=== PATIENT | female | born 1980 | race Caucasian/White ===

== ENCOUNTER 2022-10-03 08:13 | Outpatient (NON) | payer OTHER, SELFPAY | END 2022-10-03 08:14 | disposition home or self-care (01) | PROVIDERS: PCP Family Medicine; Visit Provider Internal Medicine Gastroenterology | DX: R11.2 Nausea with vomiting, unspecified (principal) | CPT/HCPCS: 88305 ==

== ENCOUNTER 2022-10-03 10:29 | Day surgery (SDC) | payer OTHER, SELFPAY ==
[2022-09-11 08:00] VITALS: BMI 22.4
[2022-09-19 13:54] VITALS: BMI 21.7
--- NOTE | 2022-10-03 10:08 | P.PNAN_ITS ---
Anes - Initial Pre Proc Eval Procedure: Operation Date: 10/03/22 12:00 Proposed Procedures p Esophagogastroduodenoscopy - Demarcus Cheatham MD Date/Time: 10/03/22 10:08 Surgeon: Demarcus Cheatham MD Pre Op Diagnosis: Nausea and Vomitting Patient Data Age: 42 Gender: F Height: 1.57 m Weight: 54 kg Allergies Allergy/AdvReac Type Severity Reaction Status Date / Time ciprofloxacin Allergy Intermediate Other Verified 10/03/22 10:49 fluconazole Allergy Unknown Rash Verified 10/03/22 10:49 tramadol Allergy Unknown Nausea and Verified 10/03/22 10:49 Vomiting Home Medications Medication Instructions Recorded Confirmed Type pantoprazole 40 mg tablet,delayed 40 mg PO QAM #30 tabs 07/05/22 10/03/22 Rx release (Protonix) cetirizine 10 mg capsule (Zyrtec) 10 mg PO DAILY PRN Allergy Symptoms 09/06/22 10/03/22 History drospirenone 3 mg-ethinyl 1 tablet PO DAILY 09/06/22 10/03/22 History estradiol 0.02 mg tablet (RADHA (28)) Patient hx anesthesia problems: none Family hx anesthesia problems: none Results Review: All pre-operative results and documents have been reviewed as part of the pre- operative evaluation. [facility] Past Medical History Medical History (Updated 10/03/22 @ 10:09 by Timi Gasca DO) Belching symptom Colon cancer screening Erosive gastritis Gluten intolerance History of gastric ulcer Nausea and vomiting in adult Surgical History Surgical History (Updated 10/03/22 @ 10:09 by Timi Gasca DO) History of bilateral oophorectomy Family History Family History Father Diabetes mellitus Mother Hypertension Social History Social History Smoking status: Never smoker Tobacco type: cigarettes Alcohol intake: current Substance use: never Substance use type: does not use Living arrangements: with family Spiritual care concerns: No Anes - Eval Final PreProcedure Day of Procedure 10/03/22 10:08 Patient weight: normal Heart: regular rate and rhythm Lungs: clear to auscultation and normal air movement Airway: Mallampati scale class II Neurological: alert and oriented Last oral intake: >/= 8 hours ASA classification: II Emergent: no Anesthetic plan: proceed Anesthesia type and monitoring: general GIVS and standard monitoring Results Review: All pre-operative results and documents have been reviewed as part of the pre- operative evaluation. Informed Consent: The patient's anesthetic plan and its attendant risks and benefits were discussed with the patient/family/POA. Questions were solicited and answers provided to the satisfaction of the patient/family/POA.
[2022-10-03 10:45] VITALS: BP 117/74; PULSE 85; RESP 20; TEMP 37.2; O2SAT 100; BMI 22.6
[2022-10-03] MEDS: LACTATED RINGERS 1,000 ML 150 ML IV CONT (10:58)
--- NOTE | 2022-10-03 11:54 | WPDHPUPDATE1 ---
History and Physical Update Update Date/Time: 10/03/22 11:54 History and Physical has been reviewed, including an updated exam of the patient. There are NO changes in the patient's condition. Risks, benefits, and alternatives have been discussed and questions answered. Patient agrees to proceed with procedure.
[2022-10-03 12:08] VITALS: BP 101/74; PULSE 86; RESP 15; O2SAT 99
[2022-10-03 12:18] VITALS: BP 105/75; PULSE 79; RESP 15; O2SAT 100
[2022-10-03 12:28] VITALS: BP 101/75; PULSE 70; RESP 15; O2SAT 100
--- NOTE | 2022-10-03 13:17 | WPDANESPN ---
Anes - Prog Note Post-Op Date/Time: 10/03/22 13:17 Cardiovascular status: normal Respiratory status: normal Airway patency: baseline Mental status: baseline Post-Op hydration status: normal Vital Signs: Last Vital Signs Temp 37.2 C 10/03/22 10:45 Pulse 70 10/03/22 12:28 Resp 15 10/03/22 12:28 BP 101/75 10/03/22 12:28 Pulse Ox 100 10/03/22 12:28 O2 Del Method Room Air 10/03/22 12:28 Pain Score (VAS): 0 Post-procedural complaints: none Patient Feedback: Patient satisfied with anesthetic care. Other Findings: Patient vital signs back to baseline. Patient denies nausea and vomiting. Patient's pain under control. Patient OK for discharge.
== END 2022-10-03 12:43 | disposition home or self-care (01) ==
PROVIDERS: PCP Family Medicine; Visit Provider Internal Medicine Gastroenterology
PROC: 0DJ08ZZ Inspection of Upper Intestinal Tract, Via Natural or Artificial Opening Endoscopic (ICD-10-PCS; CPT 43235; principal; 2022-10-03 12:00)
DX: R11.2 Nausea with vomiting, unspecified (principal)
CPT/HCPCS: 43239

== ENCOUNTER 2025-03-18 00:18 | Day surgery (SDC) | payer OTHER, SELFPAY ==
[2025-03-04 11:57] VITALS: BMI 24.2
--- OUTSIDE RECORDS SUMMARY | 2025-03-18 00:21 | XMS_ITS | Data Portability ---
Author Organization [place] [facility],, Teresa jensen Address [address] [place] [address] Assessment No assessment recorded. Plan of Treatment Reminders Order Date Submit Date Provider Last Modified By Organization Details Last Modified Time Details Appointments None recorded. Lab food allergen panel, serum 2018 019 [facility], [address], [address], [place], [address], 9 10:48:05 Referral None recorded. Procedures None recorded. Surgeries None recorded. Imaging None recorded. Medication Orders None recorded. Patient TargetsNo targets recorded. Patient Instructions Encounter Date Encounter Id Patient Instructions Last Modified By Organization Details Last Modified Time 02/23/2019 [id number] food allergy: care instructions kristina Not available 02/23/2019 15:24:11 Reason for Referral None Reported. Results Created Date Observation Date Name Description Value Unit Range Abnormal Flag Note LastModifiedBy Organization Detail LastModifiedTime 02/24/2002/23/2019 food aller gen panel , serum class description Commen t Level s of Speci fic IgE Class Descr iptio n of Class ----- ----- ----- ----- ----- -- ----- ----- ----- ----- ----- < 0.10 0 Negat juany 0.10 - 0.31 0/I Equiv ocal/ Low 0.32 - 0.55 I Low 0.56 - 1.40 II Moder ate 1.41 - 3.90 III High 3.91 - 19.00 IV Very High 19.01 - 100.0 0 V Very High >100. 00 Very High Not Available [facility] ([facility]) [address] [place], [address], 02/27/2019 06:10:08 02/24/2002/25/2019 food aller gen panel , serum P355-PsZ clam 0.36 kU/L class I abnormal Not Available [facility] ([facility]) [address] [place], [address], 02/27/2019 06:10:08 02/24/2002/25/2019 food aller gen panel , serum O434-YwP codfish <0.10 kU/L class 0 Not Available [facility] ([facility]) [address] [place], [address], 02/27/2019 06:10:08 02/24/2002/25/2019 food aller gen panel , serum E950-OgY corn <0.10 kU/L class 0 Not Available [facility] ([facility]) [address] [place], [address], 02/27/2019 06:10:08 02/24/2002/25/2019 food aller gen panel , serum P160-OyH scallop 0.44 kU/L class I abnormal Not Available [facility] ([facility]) [address] [place], [address], 02/27/2019 06:10:08 02/24/2002/25/2019 food aller gen panel , serum X903-GvX sesame seed <0.10 kU/L class 0 Not Available [facility] ([facility]) [address] [place], [address], 02/27/2019 06:10:08 02/24/2002/25/2019 food aller gen panel , serum D424-BbZ shrimp 0.73 kU/L class II abnormal Not Available [facility] ([facility]) [address] [place], [address], 02/27/2019 06:10:08 02/24/2002/25/2019 food aller gen panel , serum E289-KfQ soybean <0.10 kU/L class 0 Not Available [facility] ([facility]) [address] [place], [address], 02/27/2019 06:10:08 02/24/2002/25/2019 food aller gen panel , serum Z276-EhW wheat 0.14 kU/L class 0/I abnormal Not Available [facility] ([facility]) [address] [place], [address], 02/27/2019 06:10:08 02/24/2002/25/2019 food aller gen panel , serum O305-EnD milk <0.10 kU/L class 0 Not Available [facility] ([facility]) [address] [place], [address], 02/27/2019 06:10:08 02/24/2002/25/2019 food aller gen panel , serum F173-TdL egg white <0.10 kU/L class 0 Not Available [facility] ([facility]) [address] [place], [address], 02/27/2019 06:10:08 02/24/2002/25/2019 food aller gen panel , serum F658-BrQ peanut <0.10 kU/L class 0 Not Available [facility] ([facility]) [address] [place], [address], 02/27/2019 06:10:08 02/24/2002/25/2019 food aller gen panel , serum P602-GrS hazelnut (filbert) 0.40 kU/L class I abnormal Not Available [facility] ([facility]) [address] [place], [address], 02/27/2019 06:10:08 02/24/2002/2502/25/2019 food aller gen panel , serum J925-JxQ walnut <0.10 kU/L class 0 Not Available [facility] ([facility]) [address] [place], [address], 02/27/2019 06:10:08 02/24/2002/25/2019 food aller gen panel , serum L095-LnM cashew nut <0.10 kU/L class 0 Not Available [facility] ([facility]) [address] [place], [address], 02/27/2019 06:10:08 02/24/2002/25/2019 food aller gen panel , serum L187-ByD brazil nut <0.10 kU/L class 0 Not Available [facility] ([facility]) [address] [place], [address], 02/27/2019 06:10:08 02/24/2002/25/2019 food aller gen panel , serum Y418-DqM macadamia nut <0.10 kU/L class 0 Not Available [facility] ([facility]) [address] [place], [address], 02/27/2019 06:10:08 02/24/2002/25/2019 food aller gen panel , serum M231-LdY pecan nut <0.10 kU/L class 0 Not Available [facility] ([facility]) [address] [place], [address], 02/27/2019 06:10:08 02/24/2002/25/2019 food aller gen panel , serum E180-PpG pistachio nut <0.10 kU/L class 0 Not Available [facility] ([facility]) [address] [place], [address], 02/27/2019 06:10:08 02/24/2002/25/2019 food aller gen panel , serum S585-XfT almond <0.10 kU/L class 0 Not Available [facility] ([facility]) [address] [place], [address], 02/27/2019 06:10:08 02/24/2002/26/2019 food aller gen panel , serum I122-IhM cor A 1 0.41 kU/L class I abnormal Not Available [facility] ([facility]) [address] [place], [address], 02/27/2019 06:10:08 02/24/2002/26/2019 food aller gen panel , serum M118-RmN cor A 8 <0.10 kU/L class 0 Not Available [facility] ([facility]) [address] [place], [address], 02/27/2019 06:10:08 02/24/2002/26/2019 food aller gen panel , serum I855-KtW cor A 9 <0.10 kU/L class 0 Not Available [facility] ([facility]) [address] [place] [address], [address], 02/27/2019 06:10:08 02/24/2002/26/2019 food aller gen panel , serum V140-BoH cor A 14 <0.10 kU/L class 0 Not Available [facility] ([facility]) [address] [place] [address], [address], 02/27/2019 06:10:08 Result Notes None recorded. Problems No Known Problems Medical Equipment None Reported. Allergies Allergen ID Allergen Name Allergen Category Reaction Reaction Severity Criticality Documentation Date Start Date Code Code System Note Provider Name and Address Organization Details Recorded Time 83414 Cipro medicatio n other severe Not available 02/23/201913191 3 RxNorm Donya culver [place] [facility], 9 15:14:04 06127 tramadol medicatio n rash moderate Not available 02/23/2019 55564 RxNorm RAND Vargas - [facility], 9 15:14:19 47088 Diflucan medicatio n rash moderate Not available 02/23/201977579 3 RxNorm RAND Vargas - [facility], 9 15:14:36 Medications Name Sig Start Date Stop Date Status Note LastModified by Organization Details LastModified Time prednisone 10 mg tablet 02/23 completed Not Available Not Available Not Available fluconazole 150 mg tablet 02/23 completed Not Available Not Available Not Available tretinoin 0.025 % topical cream active Not Available Not Availa ble Not Available spironolactone 100 mg tablet active Not Available Not Availabl e Not Available pantoprazole 40 mg tablet,delayed release active Not Available Not Available Not Available clindamycin 1 % lotion active Not Available Not Available Not Available Vitals Date Recorded Body height Body mass index (BMI) Body weight Body temperature Systolic And Diastolic Provider Name and Address Organization Details Last Updated DateTime 02/23/2019 160.02 cm 22 kg/m2 07045.4 5 g 98.4 [degF] 120/80 mm[Hg] Melissa GORDILLO - [facility], 9 15:11:38 Social History Question Answer Notes LastModified by Organizat ion Details LastModified Time Tobacco Smoking Status Former Smoker RAND Reed - [facility], 02/23/2019 15:14:46 How Much Tobacco Do You Smoke? 0.5 PPD Information not available 02/23/2019 How Many Years Have You Smoked Tobacco? 10 Information not available 02/23/2019 Sex: Unknown Functional Status None recorded. Mental Status None recorded. Family History Nothing Reported. Medical History Condition Response Diabetes N Anxiety Disorder N Coronary Artery Disease N Gout N Arthritis N Kidney Stones N Hyperthyroidism N Tuberculosis N Cancer N Stroke N Diverticulitis N Stress N Hypothyroidism N COPD N Depression N Allergies N Asthma N High Cholesterol N GERD/Reflux N Liver Disease N Heart Disease N Pulmonary Embolism N Fibromyalgia N Hypertension N Osteoporosis N Kidney Disease N Gynecological HistoryNo gynecological history recorded. Obstetrics History GPAL:G 0 P 0 0 0 0 Past Encounters Encounter ID Performer Location Encounter Start Date Encounter Closed Date Diagnosis/Indication Diagnosis SNOMED-CT Code Diagnosis ICD10 Code Diagnosis IMO Codes Diagnosis Note [id number] Epi rushing MD OFFICE [address] [place] [address],[facility] [address] [place] [phone] 02/23/2019 14:35:37 02/23/2019 16:45:43 Allergy to food 858221088 T78.1XXA Doubt this represents food allergy. Will check a food allergy panel Health Concerns Section Related Observation LastModified by Organization Detai ls LastModified Time None Recorded Concern Status LastModified by Organization Details LastModified Time None Recorded Advance Directives Directive None Recorded Payers Insurance Date Sequence Insurance Name Policy Number Policy Jung Covered Member ID Jung Member ID Guarantor Name 02/23/2019 1 [facility] [id number] Elizabeth Crane [id number] Elizabeth Crane Notes Date Note Type Note Provider Name and Address Organization Details Recorded Time 02/23/2019 text/html 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 She has had 5 years of lots of different GI complaints including ulcers abdominal pain cramping. She has had an upper endoscopy and a colonoscopy. The upper endoscopy which was just in recently showed some inflammation. She recently saw her general medical practitioner who thought this all could be related to food allergies. She denies any oral pruritus. There is no particular food that she identifies with causing problems. She has had a screen for gluten sensitivity. Epi Patterson MD [address], [place], [address], [facility] [place] - [facility], 02/23/2019 16:46:15 OBGyn Episode No OBEpisode recorded.
--- OUTSIDE RECORDS SUMMARY | 2025-03-18 00:21 | XMS_ITS | Encounter Summary ---
Author Organization [facility] Address [address] [place] [address] Phone Care Team Providers Care Damascener Name Role Phone Edwina Navarro APRN, ELECTRICAL PROJECT MANAGER Primary Care Provider + Reason for Visit * Reason Comments Medication Refill Encounter Details Date Type Department Care Team (Late st Contact Info) Description 06/18/2023 Refill [facility] - Family Medicine - [place] [address] [place] [phone] Brenda Stubbs, [address] [place] [address] Medication Refill Social History Tobacco Use Types Packs/Day Years Used Date Smoking Tobacco: Former Cigarettes 0.5 20 1 994 - 2014 Smokeless Tobacco: Never Alcohol Use Standard Drinks/Week Comments Yes 0 (1 standard drink = 0.6 oz pur e alcohol) wine rarely 1-2 drinks Education Answer Date Recorded What is the highest level of school you have completed or the highest degree you have received? Associate degree: occupational, technical, or vocational program 12/04/2022 Comments Unknown Sex and Gender Information Value Date Recorded Sex Assigned at Not on file Legal Sex Female 7:35 PM CDT Gender Identity Not on file Sexual Orientation Not on file documented as of this encounter Miscellaneous Notes * Telephone Encounter - Christi Rodriguez RN - 06/19/2023 7:56 AM CST Medication failed the protocol, provider to review and approve the medication order if appropriate. Requested Prescriptions Pending Prescriptions Disp Refills hydrOXYzine (ATARAX) 50 MG Tablet [Pharmacy Med Name: hydrOXYzine HCl 50 MG Oral Tablet] 15 Tablet 0 Sig: TAKE 1 TABLET BY MOUTH EVERY 6 HOURS NEEDED FOR ANXIETY OR SLEEP Not Delegated - Off Protocol Failed - 06/18/2023 8:19 PM Failed - This refill cannot be delegated Passed - Visit with relevant provider in past 12 months or upcoming 90 days Recent Visits Date Type Provider Dept 04/19/23 Office Visit Edwina Navarro APRN, CNP [facility] 01/11/23 Office Visit Edwina Navarro APRN, CNP [facility] 12/05/22 Office Visit Edwina Navarro APRN, CNP [facility] Showing recent visits within past 365 days and meeting all other requirements Future Appointments No visits were found meeting these conditions. Showing future appointments within next 90 days and meeting all other requirements O VISUAL EQUIPMENT RENTAL CLERK documented in this encounter Plan of Treatment Upcoming Encounters Date Type Department Care Team (Late st Contact Info) Description 03/24/2025 3:30 PM CDT Office Visit [facility] - Family Medicine [facility] [address] [place] [address] Edwina Navarro APRN, ELECTRICAL PROJECT MANAGER [address] [place] [address] documented as of this encounter Visit Diagnoses Diagnosis Anxiety Anxiety state, unspecified documented in this encounter Additional Health Concerns Infection Onset Date Last Indicated Resolved Time Respiratory Rule-Out 08/19/2023 08/19/2023 024 10:54 AM AUDIO VISUAL EQUIPMENT RENTAL CLERK COVID - 19 08/19/2023 08/19/2023 08/19/2023 10:5 4 AM AUDIO VISUAL EQUIPMENT RENTAL CLERK documented as of this encounter Care Teams Damascener Relationship Specialty Start Date End Date Edwina Navarro APRN, [address] [place] [address] PCP - General Advanced Practice Nurse 12/05/22 documented as of this encounter
--- OUTSIDE RECORDS SUMMARY | 2025-03-18 00:21 | XMS_ITS | Encounter Summary ---
Author Organization [facility] Address [address] [place] [address] Phone Care Team Providers Care Rolling Up Machine Operator Name Role Phone Edwina Navarro APRN, COMMUNICATIONS EQUIPMENT INSTALLER Primary Care Provider + Reason for Visit * Reason Comments Medication Refill Encounter Details Date Type Department Care Team (Late st Contact Info) Description 07/14/2023 Refill [facility] - Family Medicine - [place] [address] [place] [phone] Edwina Navarro, RN ENT, COMMUNICATIONS EQUIPMENT INSTALLER [address] [place] [address] Medication Refill Social History Tobacco Use Types [...] Telephone Encounter - Christi Rodriguez RN - 07/15/2023 11:58 AM CST Medication failed the protocol, provider to review and approve the medication order if appropriate. Requested Prescriptions Pending Prescriptions Disp Refills hydrOXYzine (ATARAX) 50 MG Tablet [Pharmacy Med Name: hydrOXYzine HCl 50 MG Oral Tablet] 15 Tablet 0 Sig: TAKE 1 TABLET BY MOUTH EVERY 6 HOURS NEEDED FOR ANXIETY OR SLEEP Not Delegated - Off Protocol Failed - 07/14/2023 8:10 PM Failed - This refill cannot be delegated Passed - Visit with relevant provider in past 12 months or upcoming 90 days Recent Visits Date Type Provider Dept 04/19/23 Office Visit Edwina Navarro APRN, CNP [facility] 01/11/23 Office Visit Edwina Navarro APRN, CNP [facility] 12/05/22 Office Visit Edwina Navarro APRN, CNP [facility] Showing recent visits within past 365 days and meeting all other requirements Future Appointments No visits were found meeting these conditions. Showing future appointments within next 90 days and meeting all other requirements HEL KNITTING MACHINE OPERATOR documented in this encounter Plan of Treatment Upcoming Encounters Date Type Department Care Team (Late st Contact Info) Description 03/24/2025 3:30 PM CDT Office Visit [facility] - Family Medicine [facility] [address] [place] [address] Edwina Navarro APRN, COMMUNICATIONS EQUIPMENT INSTALLER [address] [place] [address] documented as of this encounter Visit Diagnoses Diagnosis Anxiety Anxiety state, unspecified documented in this encounter Additional Health Concerns Infection Onset Date Last Indicated Resolved Time Respiratory Rule-Out 08/19/2023 08/19/2023 024 10:54 AM RASCHEL KNITTING MACHINE OPERATOR COVID - 19 08/19/2023 08/19/2023 08/19/2023 10:5 4 AM RASCHEL KNITTING MACHINE OPERATOR documented as of this encounter Care Teams Rolling Up Machine Operator Relationship Specialty Start Date End Date Edwina Navarro APRN, [address] [place] [address] PCP - General Advanced Practice Nurse 12/05/22 documented as of this encounter
--- OUTSIDE RECORDS SUMMARY | 2025-03-18 00:21 | XMS_ITS | Encounter Summary ---
Author Organization [facility] Address [address] [place] [address] Phone Care Team Providers Care Oyster Worker Name Role Phone Ramon Edwinaant Cardenas APRN, MECHANICAL CAD DESIGNER Primary Care Provider + Reason for Visit * Reason Comments Medication Refill Encounter Details Date Type Department Care Team (Late st Contact Info) Description 12/18/2023 Refill [facility] - [facility] Medicine - [place] [address] [place] [address] Grabiel Pelaez MD [address] [id number] Medication Refill Social History Tobacco Use Types Packs/Day Years Used Date Smoking Tobacco: Former Cigarettes 0.5 20 0 06/17/1993 - 06/17/2013 Smokeless Tobacco: Never Alcohol Use Standard Drinks/Week Comments Not Currently 0 (1 standard drink = 0.6 oz pur e alcohol) wine rarely 1-2 drinks [facility] Utilities Answer Date Recorded In the past 12 months has schoox, gas, oil, or water company threatened to shut off services in your home? No 11/18/2023 Social Connection and Isolation Panel Answer Date Recorded In a typical week, how many times do you talk on the phone with family, friends, or neighbors? More than three times a week 11/18/2023 How often do you get togethe r with friends or relatives? Once a week 11/18/2023 How often do you attend chur ch or sabianism services? Never 11/18/2023 Do you belong to any clubs o r organizations such as anabaptism groups, unions, fraternal or athletic groups, or school groups? Yes 11/18/2023 How often do you attend meet ings of the clubs or organizations you belong to? 1 to 4 times per year 11/18/2023 Are you , , di vorced, , never , or living with a partner? 11/18/2023 AUDIT-C Answer Date Recorded Q1: How often do you have a drink containing alc ohol? Monthly or less 11/18/2023 Q2: How many drinks containi ng alcohol do you have on a typical day when you are drinking? 1 or 2 11/18/2023 Q3: How often do you have si x or more drinks on one occasion? Never 11/18/2023 Overall Financial Resource Strain (CARDIA) Answe r Date Recorded How hard is it for you to pa y for the very basics like food, housing, medical care, and heating? Not hard at all 11/18/2023 [facility] - Occupational Stress Questionnaire Answer Date Recorded Do you feel stress - tense, restless, nervous, or anxious, or unable to sleep at night because your mind is troubled all the time - these days? To some extent 11/18/2023 Exercise Vital Sign Answer Date Recorde d On average, how many days pe r week do you engage in moderate to strenuous exercise (like a brisk walk)? 5 days 11/18/2023 On average, how many minutes do you engage in exercise at this level? 30 min 11/18/2023 Hunger Vital Sign Answer Date Recorded Within the past 12 months, y ou worried that your food would run out before you got the money to buy more. Never true 11/18/19 24 Within the past 12 months, t he food you bought just didn't last and you didn't have money to get more. Never true 11/18/2023 PRAPARE - Transportation Answer Date Re corded In the past 12 months, has l ack of transportation kept you from medical appointments or from getting medications? No 08/2023 In the past 12 months, has l ack of transportation kept you from meetings, work, or from getting things needed for daily living? No 11/18/2023 Housing Stability Vital Sign Answer Keyon e Recorded In the last 12 months, was t here a time when you were not able to pay the mortgage or rent on time? No 11/18/2023 In the last 12 months, how many places have you lived? 1 11/18/2023 In the last 12 months, was t here a time when you did not have a steady place to sleep or slept in a group home (including now)? No 11/18/2023 Education Answer Date Recorded What is the highest level of school you have completed or the highest degree you have received? Associate degree: occupational, technical, or vocational program 12/04/2022 Sexually Active Control Partners Comments Yes Surgical Male Comments No Sex and Gender Information Value Date Recorded Sex Assigned at Not on file Legal Sex Female 7:35 PM CDT Gender Identity Not on file Sexual Orientation Not on file documented as of this encounter Miscellaneous Notes * Telephone Encounter - Idania Hassan RN - 12/20/2023 8:07 AM CDT duplicate documented in this encounter Plan of Treatment Upcoming Encounters Date Type Department Care Team (Late st Contact Info) Description 03/24/2025 3:30 PM CDT Office Visit [facility] - Family Medicine [facility] [address] [place] [address] Edwina Navarro APRN, MECHANICAL CAD DESIGNER [address] [place] [address] documented as of this encounter Visit Diagnoses Diagnosis Chronic pain in left shoulder Pain in joint, shoulder region documented in this encounter Care Teams Oyster Worker Relationship Specialty Start Date End Date Edwina Navarro, BALANCE WHEEL SCREW HOLE TAPPER, MECHANICAL CAD DESIGNER [address] [place] [address] PCP - General Advanced Practice Nurse 12/05/22 documented as of this encounter
--- OUTSIDE RECORDS SUMMARY | 2025-03-18 00:21 | XMS_ITS | Clinical Summary ---
Author Organization [facility] [place] [address] Address [address] [place] [address] Care Team Providers Care Caster Helper Name Role Phone Demarcus Fernando MD Unavailable + Edwina Navarro NP Primary Care Provider [phone] Allergies Active Allergy Reactions Criticality Noted Date Comments Ciprofloxacin Nausea & Vomiting Low 10/25/2017 Fluconazole Blisters High 11/16/2018 Hazelnut Rash Medium 12/05/2022 Nsaids (Non-Steroidal Anti-Inflammatory Drug) Other (See comments) Low 01/13/2024 Tramadol Vomiting Low 08/29/2017 Diclofenac Other (See comments) Low 02/06/2022 Canker sores Wheat Nausea only,Other (See comments),Rash Medium 12/04/[address] (PROTONIX) 40 mg EC tablet Take 1 tablet (40 mg total) by mouth nightly 6 01/28/2019 Active cetirizine 10 mg capsule Take 10 mg by mouth daily Active HYDROcodone-juana taminophen (NORCO) 5-325 mg per tabletIndicatio ns:Pain Take 1 tablet by mouth every 8 (eight) hours as needed for pain Do not taken empty stomach, do not mixed with alcohol or other narcotic pain medications, do not drive after taking, ideally take one before physical therapy 15 tablet 05/01/2024 Active cyclobenzaprine (FLEXERIL) 5 mg tablet Take 1 tablet (5 mg total) by mouth 2 (two) times a day as needed for muscle spasms 30 tablet 05/01/2024 Active Active Problems Problem Noted Date Diagnosed Date Ankylosis, left shoulder 01/30/2024 Assessment & Plan (01/30/2024 3:40 PM CDT): The patient has failed to progress in physical therapy or respond with lasting relief with cortisone. Having failed conservative measures (min manipulation anesthesia. By MRI there is no structural defects with a rotator cuff so no open procedures required. Would recommend performing an injection with arthrocentesis at the time of her anesthetic for her manipulation. There is risk of recurrent ankylosis neurovascular compromise fracture dislocation medical and anesthetic risks including is willing to proceed. Ankylosis of left shoulder 01/30/2024 Rotator cuff tendinitis, left 01/13/2024 Assessment & Plan (01/13/2024 9:04 AM CDT): The patient has history exam is consistent with rotator cuff tendinitis with impingement and partial ankylosis of the shoulder. After reviewing the treatment options she elected undergo a cortisone injection today. It does not loosen she may need to consider manipulation under anesthesia. Tear of left glenoid labrum 12/09/2023 Assessment & Plan (12/09/2023 3:39 PM CDT): Patient likely has a partial tear of the labrum and possibly even a SLAP lesion. These are not typically well visualized on conventional MRIs. However I would recommend conservative treatment 1st and if she fails then further workup may be indicated. Physical therapy was prescribed. Traumatic incomplete tear of left rotator cuff 0 11/28/2023 Assessment & Plan (11/28/2023 2:20 PM CDT): Patient likely has a partial-thickness tear of the rotator cuff. It was possible she has a labral injury but she has not grossly unstable and denies any history of dislocation. I would recommend obtaining an MRI as it has been six months since her injury and she continues to have symptoms that recently got exacerbated. We will initiate appropriate treatment once the results of the MRI are available. Chronic pain in left shoulder 11/19/2023 Closed head injury 08/07/2022 Concussion with no loss of consciousness 023 Primary osteoarthritis of fi rst carpometacarpal joint of right hand 02/06/2022 Overview (02/06/2022): Managed by orthopaedics Heart palpitations 07/01/2020 Assessment & Plan (07/01/2020 2:02 PM DECORATIVE ENGRAVER APPRENTICE): EKG with low voltage. Labs ordered. Referred to cardiology for further eval./mgmt. Food intolerance in adult 01/26/2019 Assessment & Plan (01/26/2019 11:42 AM CDT): Referred to [facility]outh [facility]utter, in the meantime, encouraged patient to try to adopt a gluten-free, wheat-free diet. Arthralgia of multiple sites 01/26/2019 Assessment & Plan (01/26/2019 11:41 AM CDT): Labs ordered, will follow. BMI 22.0-22.9, adult 01/26/2019 Vitamin B12 deficiency 01/26/2019 Assessment & Plan (01/26/2019 11:43 AM CDT): Labs ordered. Encouraged OTC use of oral vit. B12. Erosive esophagitis 09/01/2017 Assessment & Plan (01/26/2019 11:41 AM CDT): Closely managed by GI. Has a F/U appt with GI soon. Diverticulitis of colon without hemorrhage 08/30 Assessment & Plan (08/31/2017 12:13 PM CDT): Improving now with iv abx, advancing diet. Pain is better. She will need to have a colonoscopy 5-6 weeks as outpatient. She will call Dr Burns's office to schedule one. Assessment & Plan (09/01/2017 2:57 PM CDT): Continue Rocephin, D/c Flagyl for now(thinking Flagyl is the cause of nausea). Assessment & Plan (08/30/2017 7:06 AM CDT): The patient admitted to the hospital for diverticulitis No reported history of of constipation Will keep her on clear liquids and advance as tolerated Symptomatic control of nausea with Zofran IV fluids Trend CBC Serial abdominal exam cardiac id was consulted in ED Will follow with recommendations For now continue with IV Cipro and Flagyl Skin benign neoplasm 06/22/2014 Acne 06/22/2014 Resolved Problems Problem Noted Date Diagnosed Date Resolved Date Right wrist pain 11/27/2021 02/06/2022 Assessment & Plan (11/27/2021 9:35 AM CDT): EMG/NCV ordered, will follow. Rx given. Drug reaction 01/26/2019 02/06/2022 Assessment & Plan (01/26/2019 11:42 AM CDT): Encouraged patient to avoid known drug allergens. Diverticulitis of intestine 09/05/2017 02/06/2022 Overview (09/05/2017): Added automatically from request for surgery [id number] Nausea & vomiting 08/31/2017 01/26/2019 Assessment & Plan (09/01/2017 2:56 PM CDT): She continues to havenausea and pain. H/O Duodenal ulcers. EGD in am. Assessment & Plan (08/31/2017 12:14 PM CDT): On admission and now resolved. She denies much of heartburn, last EGD 2016 with severe esophagitis. She could have EGD with her outpatient colonoscopy. Acute kidney injury 08/30/2017 01/27/20 19 Assessment & Plan (08/31/2017 12:13 PM CDT): Due to dehydration and intractable n/v, now resolved after fluids and medical treatment Assessment & Plan (09/01/2017 2:56 PM CDT): Continue IV fluids. Resulved. Assessment & Plan (08/30/2017 7:07 AM CDT): Patient had been on spironolactone for acne Currently labs were consistent with acute kidney injury Hold spironolactone IV fluid hydration Trend BMP for resolution of acute kidney injury Gastritis 08/29/2017 02/06/2022 Overview (09/02/2017): Added automatically from request for surgery [id number] Non-intractable vomiting with nausea 08/29/2017 01/26/2019 Overview (09/02/2017): Added automatically from request for surgery [id number] Vaginitis 01/04/2016 01/26/2019 Vaginal candidiasis 01/04/2016 01/27/20 19 Immunizations Immunization Administration Dates Next Due Influenza, Unspecified 08/15/2021(Deferr ed: Patient Refused),03/17/2020,03/17/2019,03/18/20 18 Pfizer SARS-CoV-2 Monovalent Vaccination (12+ Yrs) PURPLE 01/06/2021,12/16/2020 Surgical History Surgery Date Site/Laterality Comments OTHER SURGICAL HISTORY Anxiety: Drug therapy CHOLECYSTECTOMY SALPINGECTOMY TUBAL LIGATION Removed 2011 SHOULDER ADHESION RELEASE 02/19/2024 Left Medical History Medical History Date Comments Anxiety disorder Anxiety; Outcom e: improved Gastric ulcer Diverticulosis GERD (gastroesophageal reflux disease) 2015 Migraines 20 years ago Ankylosis of left shoulder Family History Medical History Relation Name Comments Diabetes Father Emory Hypertension Mother Elizabeth Relation Name Status Comments Father Emory Mother Elizabeth Social History Tobacco Use Types Packs/Day Years Used Date Smoking Tobacco: Former Cigarettes 2 008 - 1997 Smokeless Tobacco: Never Tobacco Cessation:Counseling Given: Not Answered Alcohol Use Standard Drinks/Week Comments No 0 (1 standard drink = 0.6 oz pur e alcohol) AUDIT-C Answer Date Recorded Q1: How often do you have a drink containing alc ohol? Monthly or less 02/19/2024 Q2: How many drinks containi ng alcohol do you have on a typical day when you are drinking? 3 or 4 02/19/2024 Q3: How often do you have si x or more drinks on one occasion? Never 02/19/2024 PHQ-2 Answer Date Recorded PHQ-2 Total Score (If total score is 3 or more points, staff should administer the PHQ-9) 0 02/06/2022 Personal Safety Answer Date Recorded Have you ever been in or are you currently in a harmful physical or emotional relationship or is someone making you feel afraid or unsafe? Denies 02/19/2024 Comments No Sex and Gender Information Value Date Recorded Sex Assigned at Not on file Legal Sex Female 1:41 AM DECORATIVE ENGRAVER APPRENTICE Gender Identity Female 06/27/2020 7:19 PM DECORATIVE ENGRAVER APPRENTICE Sexual Orientation Straight 06/27/2020 7: 19 PM DECORATIVE ENGRAVER APPRENTICE Obstetrics History Para Term AB IAB SAB Ectopic Multiple Livin g Live Births 2 2 2 2 2 Date Outcome GA Total Labor Labor/2nd/3rd Weight Sex Type Anes PTL Gabriela A1 A5 Name Clin 2000 Term 39w0 d F Vag-S pont Living 2008 Term 39w0 d M Vag-S pont Living Last Filed Vital Signs Vital Sign Reading Time Taken Comments Blood Pressure 116/79 02/19/2024 9:45 AM CDT Pulse 73 02/19/2024 9:45 AM CDT Temperature 36.6 C (97.9 F) 02/19/2024 8:51 AM CDT Respiratory Rate 14 02/19/2024 9:45 AM CDT Oxygen Saturation 100% 02/19/2024 9:45 AM CDT Inhaled Oxygen Concentration - - Weight 59.2 kg (130 lb 8 oz) 02/19/2024 6:56 AM CDT Height 157.5 cm (5' 2.01) 04/10/2024 8:43 AM CD T Body Mass Index 23.87 02/19/2024 6:56 AM CDT Plan of Treatment Health Maintenance Due Date Last Done Comments Breast Cancer Screening-Mammogram 1980 DTaP/Tdap/Td Vaccine (1 - Tdap) 1991 Varicella Vaccines (1 of 2 - 13+ 2-dose series) 1993 Hepatitis B Screening 1998 HPV Vaccines (1 - 3-dose SCDM series) 2007 Depression Screening 02/06/2023 02/06/2022, 11/27/2021, 07/01/2020, Additional history exists Regular Well Visit/Exam 18-64 02/06/2023 02/06/2022, 11/21/2021 Covid-19 Vaccine ( - season) 2025 01/06/2021, 12/16/2020 Influenza Vaccine (#1) 2025 3, 04/02/2022, 03/17/2020, Additional history exists Colon Cancer Screening-Colonoscopy 10/29/2027 10/28/2017 Cervical Cancer Screening Discontinued 07/20/2020, 06/2017 Hepatitis C Screening Completed 02/06/2022 Pneumococcal vaccine <65 Aged Out No longer eligible based on patient's age to complete this topic Procedures Procedure Name Priority Date/Time Associated Diagnosis Comments HEPATITIS C ANTIBODY Routine 02/06/2022 9:11 AM CDT Encounter for hepatitis C screening test for low risk patient PAP AND HIGH RISK HPV, REFLEX TO GENOTYPING Routine 07/20/2020 4:02 PM DECORATIVE ENGRAVER APPRENTICE Pelvic and perineal pain COLONOSCOPY 10/28/2017 8:25 AM CDT from Last 3 Months or Most Recently Relevant to Health Maintenance Results * Hepatitis C antibody (02/06/2022 9:11 AM CDT) Hep C Ab Nonreactive Nonreactive [facility] ([place]) Comment: Interpretive Data Nonreactive: Antibodies to HCV not detected. Does NOT exclude the possibility of recent exposure to HCV. Equivocal: Equivocal for HCV antibodies. Supplemental molecular testing will be automatically performed to determine infection status in accordance with current CDC screening recommendations. Reactive: Positive for HCV antibodies. This may represent current or past HCV infection. Supplemental molecular testing will be automatically performed to determine current infection status in accordance with current CDC screening recommendations. Interpretive data was last revised on 2019. Testing performed by: [facility], [address] [place] [address], [place]., [address] Blood 02/06/2022 9:11 AM CDT 02/06/2022 2:14 PM CDT us Xin Alonso DO LAB MICROBIOLOGY - GENERAL ORDERABLES Edited Result - Final [facility] ([place]) 1 [facility] Department [place] [employer] [address] * Pap and High Risk HPV, reflex to Genotyping (07/20/2020 4:02 PM DECORATIVE ENGRAVER APPRENTICE) Swab (Pap test) 07/20/2020 4 :02 PM DECORATIVE ENGRAVER APPRENTICE 07/20/2020 6:06 PM DECORATIVE ENGRAVER APPRENTICE Narrative PATHOLOGY [facility] - 07/27/2020 12:51 PM DECORATIVE ENGRAVER APPRENTICE EPIC results best viewed via link to PDF [facility] [place] [address] CYTOPATHOLOGY REPORT FINAL Patient Name: MARLIN CRANE Gender: F : 1980 (Age: 40) Address: [address] [place] [address] Hospital #: [id number] Service: WEATHER ALGORITHM SCIENTIST Location: [facility] Patient Type: [facility] Ref Lab Taken: 07/20/2020 Received: 07/20/2020 Accessioned: 07/21/2020 Reported: 07/27/2020 Physician(s): Mai Hernandez M.D. FINAL INTERPRETATION SOURCE OF SPECIMEN: Liquid based Thin Prep pap with HPV STATEMENT OF ADEQUACY: - Satisfactory for evaluation - Endocervical cells/transformation zone sample present GENERAL CATEGORY: - Negative for squamous intraepithelial lesion or malignancy Comments HPV Result: NEGATIVE for high risk types of Human Papilloma Virus (HPV) RNA This probe detects the presence of HPV types: 16, 18, 31, 33, 35, 39, 45, 51, 52, 56, 58, 59, 66 and 68. This HPV test was performed at [facility] in [place], [place] utilizing the Gen-Probe Aptima assay. [facility]/07/27/2020 12:51 PERLITA Harding(ASCP) Report Electronically Reviewed and Signed Out By PERLITA Harding(ASCP) 07/27/2020 12:51:59 Cervicovaginal Cytology (Pap Test) Disclaimer: The Pap test is a screening test used to detect cervical cancer and its precursors; it is not a diagnostic procedure. False negative and false positive results do occur. Pap test results should be interpreted in the context of pertinent clinical information and biopsy results as indicated. Gross Description A. Liquid based Thin Prep pap with HPV: Cervical/vaginal - Screening ThinPrep-With HPV and GC/Chlamydia Clinical Diagnosis and History Last Menstrual Period: 07/16/20 The patient is a 40 year old woman with screening. [place] [address]. The Gonorrhea/[place] [address]. Report Images and scanned documents, if included only viewable in PDF version The performance characteristics of some immunohistochemical stains, in-situ hybridization and fluorescence in-situ hybridization tests and immunophenotyping by flow cytometry cited in this report (if any) were determined by the Surgical Pathology Department at [facility] as part of an ongoing quality rep program and in compliance with federally mandated regulations drawn from the Clinical Laboratory Improvement Act of 1988 (CLIA '88). Some of these tests rely on the use of analyte specific reagents and are subject to specific labeling requirements by the US Food and Drug Administration. Such diagnostic tests may only be performed in a facility that is certified by the Department of Health and Human Services as a high complexity laboratory under CLIA '88. The FDA has determined that such clearance or approval is not necessary. This test is used for clinical purposes. It should not be regarded as investigational or for research. Nevertheless, federal rules concerning the medical use of analyte specific reagents require that the following disclaimer be attached to the report: This test was developed and its performance characteristics determined by the Surgical Pathology Department of [facility]. It has not been cleared or approved by the U. S. Food and Drug Administration. Mai Hernandez MD LAB CYTOLOGY ORDERABLES F inal Result PATHOLOGY [facility] 3rd Floor [place], [place] [phone] * COLONOSCOPY (10/28/2017 8:25 AM CDT) Anatomical Region Laterality Modality Other Narrative Procedure Note Demarcus Fernando MD - 10/28/2017 8:[address] [facility] Patient Name: Marlin Crane Procedure Date: 10/28/2017 8:25 AM Date of : 1980 Admit Type: Outpatient Age: 37 Gender: Female Attending MD: Demarcus Barajas M.D. Room: [facility] ENDOSCOPY ROOM 2 Note Status: Finalized Procedure: Colonoscopy Indications: This is the patient's first colonoscopy, Follow-upof diverticulitis- treated medically few weeks ago. Referring MD: Karthik Larsen MD Providers: Demarcus Morel M.D. Impression: - Mild diverticulosis in the sigmoid colon and inthe descending colon. There was no evidence ofdiverticular bleeding. - The entire examined colon is normal. - No specimens collected. Recommendation: - Discharge patient to home. - Resume previous diet. - Continue present medications. - Repeat colonoscopy at age 50 for surveillance. - Return to primary care physician PRN. Medicines: Monitored Anesthesia Care Complications: No immediate complications. Estimated Blood Loss: Estimated blood loss: none. Procedure: Pre-Anesthesia Assessment: - Prior to the procedure, a History and Physical was performed, and patient medications and allergieswere reviewed. The patient's tolerance of previous anesthesia was also reviewed. The risks and benefitsof the procedure and the sedation options and riskswere discussed with the patient. All questions were answered, and informed consent was obtained. Prior Anticoagulants: The patient has taken no previous anticoagulant or antiplatelet agents. ASA Grade Assessment: I - A normal, healthy patient. After reviewing the risks and benefits, the patient was deemed in satisfactory condition to undergo the procedure. The benefits, risks and alternatives of theprocedure and sedation were discussed and informed consent was obtained. All questions were answered. Please referto the signed informed consent document in the medical record. The scope was passed under direct vision.The Colonoscope [id number] was introducedthrough the anus and advanced to the the cecum, identifiedby appendiceal orifice and ileocecal valve. The colonoscopy was performed without difficulty. The patient tolerated the procedure well. The quality of the bowel preparation was excellent. Findings: The perianal and digital rectal examinations were normal. A few small and large-mouthed diverticula were found in the sigmoid colon and descending colon. There was no evidence of diverticular bleeding or active inflammation. The colon (entire examined portion) appeared normal otherwise, no colitis, no polyps. Electronically signed by Demarcus Cheatham M.D. Demarcus Morel M.D. 10/28/2017 9:04:50 AM Number of Addenda: 0 Note Initiated On: 10/28/2017 8:25 AM Procedure Code(s): --- Professional --- 72951, Colonoscopy, flexible; diagnostic, including collection of specimen(s) by brushing or washing, when performed (separateprocedure) Diagnosis Code(s): --- Professional --- K57.32, Diverticulitis of large intestine without perforation orabscess without bleeding K57.30, Diverticulosis of large intestine without perforation orabscess without bleeding CPT copyright 2017 [employer]. All rights reserved. The codes documented in this report are preliminary and upon aluminum hydroxide process operator reviewmay be revised to meet current compliance requirements. Recognized by the [employer] for promoting quality in endoscopy us Demarcus Morel MD ENDOSCOPY PROCEDUR ES Final Result from Last 3 Months or Most Recently Relevant to Health Maintenance [place] [address] [address] [place] [address] [employer] Address: [place] [id number] [facility] [employer] Address: [address] [address] [place] [address] [facility] [employer] Address: [facility] [address] [place] [address] Advance Directives For more information, please contact: [phone] * Full Code (Latest Code Status on File) Date Activated Date Inactivated Comments 10/28/2017 7:26 AM 10/28/2017 11:43 AM * Full Code Date Activated Date Inactivated Comments 09/02/2017 2:43 PM 09/02/2017 6:10 PM * Full Code Date Activated Date Inactivated Comments 09/02/2017 9:21 AM 09/02/2017 2:43 PM * Full Code Date Activated Date Inactivated Comments 08/29/2017 10:57 PM 09/02/2017 9:20 AM Care Teams Caster Helper Relationship Specialty Start Date End Date Edwina Navarro NP [address] [place] [address] PCP - General Family Medicine 03/09/24 Demarcus Fernando MD Referring Physician Gastroenterology 01/26/19
--- OUTSIDE RECORDS SUMMARY | 2025-03-18 00:21 | XMS_ITS | Encounter Summary ---
Author Organization [facility] Address [address] [place] [address] Phone Care Team Providers Care Buyer Broker Name Role Phone Edwina Navarro APRN, PHONOGRAPH MECHANIC Primary Care Provider + Reason for Visit * Reason Comments Medication Refill Encounter Details Date Type Department Care Team (Late st Contact Info) Description 01/16/2023 Refill [facility] - Family Medicine - [place] [address] [place] [address] Edwina Navarro, [place], PHONOGRAPH MECHANIC [address] [place] [address] Medication Refill Social History Tobacco Use Types [...] on file Sexual Orientation Not on file COVID-19 Exposure Response Date Recorded In the last 10 days, have yo u been in contact with someone who was confirmed or suspected to have Coronavirus/COVID-19? No / Unsure 01/16/2023 10:01 AM CDT documented as of this encounter Miscellaneous Notes * Telephone Encounter - Christi Rodriguez RN - 01/18/2023 2:53 PM CDT Name from pharmacy: hydrOXYzine HCl 50 MG Oral Tablet Will file in chart as: hydrOXYzine (ATARAX) 50 MG Tablet The original prescription was reordered on 01/18/2023 by Edwina Navarro APRN, PHONOGRAPH MECHANIC. * Telephone Encounter - Dottie Hoffmann RN - 01/16/2023 3:33 PM CDT duplicate documented in this encounter Plan of Treatment Upcoming Encounters Date Type Department Care Team (Late st Contact Info) Description 03/24/2025 3:30 PM CDT Office Visit [facility] - Family Medicine [facility] [address] [place] [address] Edwina Navarro APRN, PHONOGRAPH MECHANIC [address] [place] [address] documented as of this encounter Visit Diagnoses Diagnosis Anxiety Anxiety state, unspecified documented in this encounter Additional Health Concerns Infection Onset Date Last Indicated Resolved Time Respiratory Rule-Out 08/19/2023 08/19/2023 024 10:54 AM MEMORIAL DESIGNER COVID - 19 08/19/2023 08/19/2023 08/19/2023 10:5 4 AM MEMORIAL DESIGNER documented as of this encounter Care Teams Buyer Broker Relationship Specialty Start Date End Date Edwina Navarro APRN, PHONOGRAPH MECHANIC [address] [place] [address] PCP - General Advanced Practice Nurse 12/05/22 documented as of this encounter
--- OUTSIDE RECORDS SUMMARY | 2025-03-18 00:21 | XMS_ITS | Encounter Summary ---
Author Organization [facility] Address [address] [place] [address] Phone Care Team Providers Care Tablet Coater Name Role Phone Edwina Navarro APRN, PC ANALYST Primary Care Provider + Reason for Visit * Reason Comments Medication Refill Encounter Details Date Type Department Care Team (Late st Contact Info) Description 01/29/2023 Refill [facility] Medical Group - Family Medicine - [address] [place] [address] Edwina Navarro, [place], PC ANALYST [address] [place] [address] Medication Refill Social History Tobacco Use Types [...] Telephone Encounter - Idania Hassan RN - 01/29/2023 9:59 AM CDT Per the MEDD: this was dispensed 01/18/23 as a 4-day supply Medication failed the protocol, provider to review and approve the medication order if appropriate. Requested Prescriptions Pending Prescriptions Disp Refills hydrOXYzine (ATARAX) 50 MG Tablet [Pharmacy Med Name: hydrOXYzine HCl 50 MG Oral Tablet] 15 Tablet 0 Sig: Take 1 Tablet by mouth every 6 hours as needed for Anxiety or Sleep. Not Delegated - Off Protocol Failed - 01/29/2023 9:47 AM Failed - This refill cannot be delegated Passed - Visit with relevant provider in past 12 months or upcoming 90 days Recent Visits Date Type Provider Dept 01/11/23 Office Visit Edwina Navarro APRN, CNP [facility] 12/05/22 Office Visit Edwina Navarro APRN, [facility] Showing recent visits within past 365 days and meeting all other requirements Future Appointments No visits were found meeting these conditions. Showing future appointments within next 90 days and meeting all other requirements documented in this encounter Plan of Treatment Upcoming Encounters Date Type Department Care Team (Late st Contact Info) Description 03/24/2025 3:30 PM CDT Office Visit [facility] Medical Group - Family Medicine [facility] [address] [place] [address] Edwina Navarro APRN, PC ANALYST [address] [place] [address] documented as of this encounter Visit Diagnoses Diagnosis Anxiety Anxiety state, unspecified documented in this encounter Additional Health Concerns Infection Onset Date Last Indicated Resolved Time Respiratory Rule-Out 08/19/2023 08/19/2023 024 10:54 AM LOAN CLOSER COVID - 08/19/2023 08/19/2023 08/19/2023 10:5 4 AM LOAN CLOSER documented as of this encounter Care Teams Tablet Coater Relationship Specialty Start Date End Date Edwina Navarro, AIRCRAFT STRESS ANALYST, PC ANALYST [address] [place] [address] PCP - General Advanced Practice Nurse 12/05/22 documented as of this encounter
--- OUTSIDE RECORDS SUMMARY | 2025-03-18 00:21 | XMS_ITS | Encounter Summary ---
Author Organization [facility] Address [address] [place] [address] Phone Care Team Providers Care Wrapper Stemmer Hand Name Role Phone Edwina Navarro APRN, AUTOMATIC EMBROIDERY MACHINE TENDER Primary Care Provider + Reason for Visit * Reason Comments Medication Refill Encounter Details Date Type Department Care Team (Late st Contact Info) Description 01/16/2023 Refill [facility] Medical [facility] - Family Medicine [facility] [address] [place] [address] Brenda Stubbs, [address] [place] [address] Medication Refill Social History Tobacco Use Types [...] reordered on 01/18/2023 by Edwina Navarro APRN, AUTOMATIC EMBROIDERY MACHINE TENDER. * Telephone Encounter - Dottie Hoffmann RN - 01/16/2023 3:32 PM CDT duplicate documented in this encounter Plan of Treatment Upcoming Encounters Date Type Department Care Team (Late st Contact Info) Description 03/24/2025 3:30 PM CDT Office Visit [facility] - Family [facility] [address] [place] [address] Edwina Navarro APRN, AUTOMATIC EMBROIDERY MACHINE TENDER [address] [place] [address] documented as of this encounter Visit Diagnoses Diagnosis Anxiety Anxiety state, unspecified documented in this encounter Additional Health Concerns Infection Onset Date Last Indicated Resolved Time Respiratory Rule-Out 08/19/2023 08/19/2023 024 10:54 AM HISTORIC SITE ADMINISTRATOR COVID - 19 08/19/2023 08/19/2023 08/19/2023 10:5 4 AM HISTORIC SITE ADMINISTRATOR documented as of this encounter Care Teams Wrapper Stemmer Hand Relationship Specialty Start Date End Date Edwina Navarro APRN, AUTOMATIC EMBROIDERY MACHINE TENDER [address] [place] [address] PCP - General Advanced Practice Nurse 12/05/22 documented as of this encounter
--- OUTSIDE RECORDS SUMMARY | 2025-03-18 00:21 | XMS_ITS | Encounter Summary ---
Author Organization [facility] Address [address] [place] [address] Phone Care Team Providers Care Wireless Technician Name Role Phone Edwina Navarro APRN, BOX GLUER Primary Care Provider + Reason for Visit * Reason Comments Medication Refill Encounter Details Date Type Department Care Team (Late st Contact Info) Description 08/29/2023 Refill [facility] Medical Group - Family Medicine - [address] [place] [id number] Edwina Navarro, [place], BOX GLUER [address] [place] [address] Medication Refill Social History Tobacco Use Types [...] occupational, technical, or vocational program 12/04/2022 Comments No Sex and Gender Information Value Date Recorded Sex Assigned at Not on file Legal Sex Female 7:35 PM CDT Gender Identity Not on file Sexual Orientation Not on file documented as of this encounter Miscellaneous Notes * Telephone Encounter - Christi Rodriguez RN - 08/30/2023 10:51 AM CDT Medication failed the protocol, provider to review and approve the medication order if appropriate. Requested Prescriptions Pending Prescriptions Disp Refills hydrOXYzine (ATARAX) 50 MG Tablet [Pharmacy Med Name: hydrOXYzine HCl 50 MG Oral Tablet] 15 Tablet 0 Sig: TAKE 1 TABLET BY MOUTH EVERY 6 HOURS NEEDED FOR ANXIETY OR SLEEP Not Delegated - Off Protocol Failed - 08/29/2023 9:09 PM Failed - This refill cannot be [...] Description 03/24/2025 3:30 PM CDT Office Visit [facility] Medical Group - Family Medicine [facility] [address] [place] [address] Edwina Navarro APRN, CNP [address] [place] [address] documented as of this encounter Visit Diagnoses Diagnosis Anxiety Anxiety state, unspecified documented in this encounter Care Teams Wireless Technician Relationship Specialty Start Date End Date Edwina Navarro APRN, CNP [address] [place] [address] PCP - General Advanced Practice Nurse 12/05/22 documented as of this encounter
--- OUTSIDE RECORDS SUMMARY | 2025-03-18 00:21 | XMS_ITS | Encounter Summary ---
Author Organization [facility] Address [address] [place] [address] Phone Care Team Providers Care Chairman Emeritus Name Role Phone Edwina Navarro APRN, VENEER PULLER Primary Care Provider + Reason for Visit * Reason Comments Medication Refill Encounter Details Date Type Department Care Team (Late st Contact Info) Description 03/28/2023 Refill [facility] Medical Group - Family Medicine - [address] [place] [address] Edwina Navarro, [place], VENEER PULLER [address] [place] [address] Medication Refill Social History Tobacco Use Types Packs/Day Years Used Date Smoking Tobacco: Former Cigarettes 0.5 20 1 994 - 2013 Smokeless Tobacco: Never Alcohol Use Standard Drinks/Week [...] suspected to have Coronavirus/COVID-19? No / Unsure 03/18/2023 11:50 AM CDT documented as of this encounter Miscellaneous Notes * Telephone Encounter - Dottie Hoffmann RN - 03/28/2023 2:52 PM CDT Medication failed the protocol, provider to review and approve the medication order if appropriate. Requested Prescriptions Pending Prescriptions Disp Refills hydrOXYzine (ATARAX) 50 MG Tablet [Pharmacy Med Name: hydrOXYzine HCl 50 MG Oral Tablet] 15 Tablet 0 Sig: Take 1 Tablet by mouth every 6 hours as needed for Anxiety or Sleep. Not Delegated - Off Protocol Failed - 03/28/2023 1:17 PM Failed - This refill cannot be delegated Passed - Visit with relevant provider in past 12 months or upcoming 90 days Recent Visits Date Type Provider Dept 01/11/23 Office Visit Edwina Navarro APRN, CNP [facility] 12/05/22 Office Visit Edwina Navarro APRN, [facility] Showing recent visits within past 365 days and meeting all other requirements Future Appointments No visits were found meeting these conditions. Showing future appointments within next 90 days and meeting all other requirements documented in this encounter Plan of Treatment Upcoming Encounters Date Type Department Care Team (Late st Contact Info) Description 03/24/2025 3:30 PM CDT [facility] - [address] [place] [address] Edwina Navarro APRN, VENEER PULLER [address] [place] [address] documented as of this encounter Visit Diagnoses Diagnosis Anxiety Anxiety state, unspecified documented in this encounter Additional Health Concerns Infection Onset Date Last Indicated Resolved Time Respiratory Rule-Out 08/19/2023 08/19/2023 024 10:54 AM CASINO INVESTIGATOR COVID - 19 08/19/2023 08/19/2023 08/19/2023 10:5 4 AM CASINO INVESTIGATOR documented as of this encounter Care Teams Chairman Emeritus Relationship Specialty Start Date End Date Edwina Navarro, HELP DESK MANAGER, VENEER PULLER [address] [place] [address] PCP - General Advanced Practice Nurse 12/05/22 documented as of this encounter
--- OUTSIDE RECORDS SUMMARY | 2025-03-18 00:21 | XMS_ITS | Clinical Summary ---
Author Organization [facility] Address [address], [facility] [address] [place] [address] Phone Care Team Providers Care V Belt Coverer Name Role Phone Edwina Navarro VP SOFTWARE SUPPORT, WIRE DROPPER Primary Care Provider + Allergies Active Allergy Reactions Criticality Noted Date Comments Ciprofloxacin Other (see Comments) High 10/25/2017 Diclofenac Other (see Comments) Low 02/06/2022 Canker sores Fluconazole Itching,Rash,Shortne ss of Breath,Swelling High 11/16/2018 Hazelnut (Filbert) Unknown 12/05/2022 Nsaids Other (see Comments) 12/05/2022 Tramadol Nausea,Rash,Vomiting Medium 08/29/2017 Wheat Extract Nausea,Other (see Comments),Rash,Vomiting 12/04/2017 Medications pantoprazole (PROTONIX) 40 MG Tablet Delayed Response pantoprazole 40 mg tablet,delayed release 9 Active acetaminophen-c odeine (TYLENOL #3) 300-30 MG TabletIndicatio ns:Chronic pain in left shoulder Take 1 Tablet by mouth Daily as needed for Moderate or more severe pain. 30 Tablet 4 Active Additional Information Patient not taking.Reported on 04/10/2024 Cetirizine HCl 10 MG Capsule Take 10 mg by mouth daily. Active hydrOXYzine (ATARAX) 50 MG TabletIndicatio ns:Anxiety Take 1 Tablet by mouth every 6 hours as needed for Anxiety or Sleep. 15 Tablet Active Active Problems Problem Noted Date Diagnosed Date Chronic pain in left shoulder 11/19/2023 Arthralgia of multiple sites 01/26/2019 Overview (08/19/2023): Last Assessment & Plan: Labs ordered, will follow. Encounters Date Type Department Care Team Description 03/14/2025 Travel from Last 3 Months Immunizations Immunization Administration Dates Next Due Influenza Vaccine, Quadrivalent, PF 03/19/2023,1 Influenza Vaccine,unspecified Formulation 2019,03/17/2019,03/18/2018 Influenza,Split Virus,Trivalent,Injectable,PF 04/10/2024 Family History Medical History Relation Name Comments Hypertension Brother 1 Brother 2 Hypertension Brother 2 Brother1 Diabetes Father L No Known Problems Maternal Grandfather No Known Problems Maternal Grandmother Hypertension Mother Na No Known Problems Paternal Grandfather No Known Problems Paternal Grandmother Relation Name Status Comments Brother 1 Brother 2 Alive Brother 2 Brother1 Alive Father L Alive Maternal Grandfather Maternal Grandmother Mother Na Alive Paternal Grandfather Paternal Grandmother Social History Tobacco Use Types Packs/Day Years Used Date Smoking Tobacco: Former Cigarettes 0.5 20 0 06/17/1993 - 06/17/2013 Smokeless Tobacco: Never Tobacco Cessation:Counseling Given: No Alcohol Use Standard Drinks/Week Comments Yes 0 (1 standard drink = 0.6 oz pur e alcohol) wine rarely 1-2 drinks Social Connection and Isolation Panel Answer Date Recorded In a typical week, how many times do you talk on the phone with family, friends, or neighbors? Patient declined 02/01/2024 How often do you get togethe r with friends or relatives? Patient declined 02/01/2024 How often do you attend adventism or gnosticist serv ices? Patient declined 02/01/2024 Do you belong to any clubs o r organizations such as adventism groups, unions, fraternal or athletic groups, or school groups? Patient declined 02/01/2024 How often do you attend meet ings of the clubs or organizations you belong to? Patient declined 02/01/2024 Are you , , di vorced, , never , or living with a partner? Patient declined 02/01/2024 PHQ-2 Answer Date Recorded Total Score - Questions 1-9 0 03/18 Housing Stability Vital Sign Answer Keyon e [...] a group home (including now)? No 11/18/2023 Housing Stability Vital Sign Answer Keyon e Recorded In the last 12 months, was t here a time when you were not able to pay the mortgage or rent on time? Patient declined 02/01/20 24 Number of Times Moved in the Last Year Not on fi le 02/01/2024 At any time in the past 12 m [facility], were you homeless or living in a group home (including now)? Patient declined 02/01/2024 Social Connection and Isolation Panel Answer Date Recorded In a typical week, how many times do you talk on the phone with family, friends, or neighbors? Twice a week 03/14/2025 How often do you get togethe r with friends or relatives? Once a week 03/14/2025 How often do you attend chur ch or gnosticist services? Never 03/14/2025 Do you belong to any clubs o r organizations such as adventism groups, unions, fraternal or athletic groups, or school groups? No 03/14/2025 How often do you attend meet ings of the clubs or organizations you belong to? More than 4 times per year 03/14/2025 Are you , , di vorced, , never , or living with a partner? 03/14/2025 AUDIT-C Answer Date Recorded Q1: How often do you have a drink containing alc ohol? Monthly or less 03/14/2025 Q2: How many drinks containi ng alcohol do you have on a typical day when you are drinking? 3 or 4 03/14/2025 Q3: How often do you have si x or more drinks on one occasion? Never 03/14/2025 Overall Financial Resource Strain (CARDIA) Answe r Date Recorded How hard is it for you to pa y for the very basics like food, housing, medical care, and heating? Patient declined 03/14/2025 [facility] - Occupational Stress Questionnaire Answer Date Recorded Do you feel stress - tense, restless, nervous, or anxious, or unable to sleep at night because your mind is troubled all the time - these days? To some extent 03/14/2025 Exercise Vital Sign Answer Date Recorde d On average, how many days pe r week do you engage in moderate to strenuous exercise (like a brisk walk)? 5 days 03/14/2025 On average, how many minutes do you engage in exercise at this level? 90 min 03/14/2025 Hunger Vital Sign Answer Date Recorded Within the past 12 months, y ou worried that your food would run out before you got the money to buy more. Never true 03/14/20 25 Within the past 12 months, t he food you bought just didn't last and you didn't have money to get more. Never true 03/14/2025 PRAPARE - Transportation Answer Date Re corded In the past 12 months, has l ack of transportation kept you from medical appointments or from getting medications? No 02/16 In the past 12 months, has l ack of transportation kept you from meetings, work, or from getting things needed for daily living? No 03/14/2025 Housing Stability Vital Sign Answer Keyon e Recorded In the last 12 months, was t here a time when you were not able to pay the mortgage or rent on time? No 03/14/2025 In the past 12 months, how m any times have you moved where you were living? 0 03/14/2025 At any time in the past 12 m [facility], were you homeless or living in a group home (including now)? No 03/14/2025 [facility] Utilities Answer Date Recorded In the past 12 months has th e electric, gas, oil, or water company threatened to shut off services in your home? No 03/14/2025 Education Answer Date Recorded What is the [...] on file Sexual Orientation Not on file Last Filed Vital Signs Vital Sign Reading Time Taken Comments Blood Pressure 110/64 04/10/2024 10:43 AM CDT Pulse 84 04/10/2024 10:43 AM CDT Temperature 36.3 C (97.4 F) 04/10/2024 10:43 AM CDT Respiratory Rate 16 04/10/2024 10:43 AM CDT Oxygen Saturation 99% 04/10/2024 10:43 AM CDT Inhaled Oxygen Concentration - - Weight 59.6 kg (131 lb 8 oz) 04/10/2024 10:43 AM CDT Height 157.5 cm (5' 2) 04/10/2024 10:43 AM CDT Body Mass Index 24.05 04/10/2024 10:43 AM CDT Plan of Treatment Upcoming Encounters Date Type Department Care Team (Late st Contact Info) Description 03/24/2025 3:30 PM CDT Office Visit [facility] [address] [place] [address] Edwina Navarro, VP SOFTWARE SUPPORT, WIRE DROPPER [address] [place] [address] Health Maintenance Due Date Last Done Comments Mammogram 1980 TdaP Immunization 1980 Hepatitis B Immunization (1 of 3 - 19+ 3-dose series) 1999 Human Papillomavirus (HPV) Immunization (1 - 3-dose SCDM series) 2007 Discussion re Starting/Frequency of Mammograms 2020 Influenza Immunization (#1) 02/15/202503/18, 03/19/2023, 04/02/2022, Additional history exists SARS-COV-2 Immunization ( season) 2025 04/02/2022, 01/06/2021, 12/16/2020 Cologuard 2025 Colonoscopy 2025 Colorectal Cancer Screening 2025 Immunochemical Fecal Occult Blood 2025 Pap Smear 04/19/2026 04/19/2023 Cervical Cancer Screening (CCS) 04/19/2028 HPV/Cotest 04/19/2028 04/19/2023 Respiratory Syncytial Virus (RSV) Immunization (Adult) (1 - 1-dose 75+ series) 2055 Hepatitis C Virus (HCV) Screening Completed 04/10/2024 Meningococcal Immunization (ACWY) Aged Out No longer eligible based on patient's age to complete this topic Pneumococcal Immunization Combined Aged Out No longer eligible based on patient's age to complete this topic Rotavirus Immunization Aged Out No lo nger eligible based on patient's age to complete this topic Procedures Procedure Name Priority Date/Time Associated Diagnosis Comments HEPATITIS C ANTIBODY Routine 04/10/2024 11:48 AM CDT Need for hepatitis C screening test HUMAN PAPILLOMA VIRUS (HPV) Routine 04/19/2023 9:55 AM CDT Encounter for well woman exam with routine gynecological exam PATHOLOGY CYTOLOGY SHELL CORE AND MOLDING SUPERVISOR Routine 04/19/2023 9:55 AM CDT Encounter for well woman exam with routine gynecological exam from Last 3 Months or Most Recently Relevant to Health Maintenance Results * HEPATITIS C ANTIBODY (04/10/2024 11:48 AM CDT) hepatitis C antibody 0.63 <1 S/CO 04/10/2024 9:35 PM CDT [facility] Comment: Signal/Cutoff ratio < 0.79 is Nondetected Signal/Cutoff ratio 0.80-0.99 is Grayzone Signal/Cutoff ratio > 0.99 is Detected Supplemental assays are recommended if signal/cutoff ratio is >/=1.00. Signal/cutoff ratio result >/= 5.00 is 97% predictive of positivity for recombinant immunoblot assay (RIBA) and will be reported to the [place] Department of Public Health as required. Blood Venipuncture / Unknown 04/10/2024 11:48 AM CDT 04/10/2024 12:56 PM CDT us Edwina M Brown VP SOFTWARE SUPPORT, WIRE DROPPER CHEMISTRY ORDERABLES Fin al Result [facility] [address] [place] [address], [place] * PATHOLOGY CYTOLOGY SHELL CORE AND MOLDING SUPERVISOR (04/19/2023 9:55 AM CDT) SPECIMEN ADEQUACY Satisfactory for evaluation. Endocervical/transf ormation zone component is absent. 04/30/2023 4:36 PM MASS SPECTROMETRY SPECIALIST [facility] DESCRIPTIVE DIAGNOSIS NEGATIVE FOR INTRAEPITHELIAL LESIONS OR MALIGNANCY. 04/30/2023 4:36 PM MASS SPECTROMETRY SPECIALIST [facility] at [address]36 MASS SPECTROMETRY SPECIALIST Automated Examination Analysis of this sample has been assisted by an automated imaging and review system ([employer] Imaging System, [employer], [place], [place]). This case is further evaluated and finalized by a circulation manager and/or pathologist. 04/30/2023 4:36 PM MASS SPECTROMETRY SPECIALIST [facility] Disclaimer The PAP smear is a screening test designed to detect cancerous or precancerous cells of the uterine cervix. It is one of the best means available for detection of cervical cancer but still carries an inherent false-negative rate. The consequences of a false-negative PAP result can be minimized by adhering to current screening guidelines. The following are general guidelines recommended by the ACS, ASCP, ASCCP, and ACOG: PAP testing is recommended every three years for women 21-29, Co-Testing, a PAP test in conjunction with an HPV (Human Papillomavirus) test for women ages 30-65, and no PAP or HPV testing for women under the age of 21 or older than 65 unless clinically indicated. 04/30/2023 4:36 PM MASS SPECTROMETRY SPECIALIST [facility] Case Report Gynecologic Cytology Report Case: [id number] Authorizing Provider: Edwina Navarro APRN, CNP Collected: 04/19/2023 09:55 AM Ordering Location: [facility] Received: 04/19/2023 09:55 AM Medicine - Sebastian First Screen: Suha Castle Specimen: TP Screen, Cervix/Endocervix 04/30/2023 4:36 PM MASS SPECTROMETRY SPECIALIST [facility] Other CERVIX UTERI STRUCTURE / Unknown Non-Phlebotomy Collection / Unknown 04/19/2023 9:55 AM CDT 04/19/2023 9:55 AM CDT Edwina Navarro APRN, PEREZ PATHOLOGY/CYTOLOGY ORDER BRENDAN Final Result [facility] [address] [place] [id number], * HUMAN PAPILLOMA VIRUS (HPV) (04/19/2023 9:55 AM CDT) HPV OTHER HIGH RISK TYPES, PCR NEGATIVE NEGATIVE 04/22/2023 2:22 PM MASS SPECTROMETRY SPECIALIST [facility] Comment: The following Other High Risk types were not detected: 31, 33, 35, 39, 45, 51, 52, 56, 58, 59, 66, and 68. A negative high-risk HPV result does not exclude the possibility of future cytologic HSIL or underlying CIN2-3 or cancer. The presence of PCR inhibitors may cause false negative or invalid results. If concentrations of whole blood in the sample exceed 1.5% (dark red or brown coloration) in PreservCyt solution, there is a likelihood of obtaining a false-negative result. HPV TYPE 16 NEGATIVE NEGATIVE 04/22/2023 2:22 PM MASS SPECTROMETRY SPECIALIST [facility] Comment: A negative high-risk HPV result does not exclude the possibility of future cytologic HSIL or underlying CIN2-3 or cancer. The presence of PCR inhibitors may cause false negative or invalid results. If concentrations of whole blood in the sample exceed 1.5% (dark red or brown coloration) in PreservCyt solution, there is a likelihood of obtaining a false-negative result. HPV TYPE 18 NEGATIVE NEGATIVE 04/22/2023 2:22 PM MASS SPECTROMETRY SPECIALIST [facility] Comment: A negative high-risk HPV result does not exclude the possibility of future cytologic HSIL or underlying CIN2-3 or cancer. The presence of PCR inhibitors may cause false negative or invalid results. If concentrations of whole blood in the sample exceed 1.5% (dark red or brown coloration) in PreservCyt solution, there is a likelihood of obtaining a false-negative result. HPV ORDER BE USED FOR SCREENING OR DIAGNOSTIC SCREENING 04/22/2023 2:22 PM MASS SPECTROMETRY SPECIALIST [facility] Other Non-Phlebotomy Collection / Unknown 04/19/2023 9:55 AM CDT 04/19/2023 9:55 AM CDT Narrative [facility] - 04/22/2023 2:22 PM MASS SPECTROMETRY SPECIALIST Performed by Real-Time Polymerase Chain Reaction (PCR) on the Rosa [employer] Annamarie 4800. This assay has been validated for use with post-aliquot samples from the [employer] processor. us Edwina Navarro APRN, WIRE DROPPER LAB SEND OUTS Final Re sult [facility] [address] [place] [address], [facility] [address] [place] [address] from Last 3 Months or Most Recently Relevant to Health Maintenance Insurance [facility] [place] [address] Care Teams V Belt Coverer Relationship Specialty Start Date End Date Edwina Navarro APRN, WIRE DROPPER [address] [place] [address] PCP - General Advanced Practice Nurse 12/05/22
--- NOTE | 2025-03-18 07:11 | P.PNAN_ITS ---
Anes - Initial Pre Proc Eval Procedure: Operation Date: 03/18/25 08:30 Proposed Procedures p Screening Colonoscopy - Demarcus Cheatham MD Date/Time: 03/18/25 07:11 Surgeon: Demarcus Cheatham MD Pre Op Diagnosis: Encounter for screening for malignant neoplasm of Patient Data Age: 45 Gender: F Height: 1.57 m Weight: 60 kg Allergies Allergy/AdvReac Type Severity Reaction Status Date / Time ciprofloxacin Allergy Intermediate Other Verified 03/04/25 11:55 fluconazole Allergy Unknown Rash Verified 03/04/25 11:55 tramadol Allergy Unknown Nausea and Verified 03/04/25 11:55 Vomiting Home Medications ?Medication ?Instructions ?Recorded ?Confirmed ?Type cetirizine 10 mg capsule (Zyrtec) 10 mg PO DAILY PRN A llergy Symptoms 09/06/22 03/04/25 History lansoprazole 30 mg capsule,delayed See Rx Instructions .Route 01/15/25 03/04/25 Rx release .COMPLEX #30 caps Patient hx anesthesia problems: none Family hx anesthesia problems: none Results Review: All pre-operative results and documents have been reviewed as part of the pre- operative evaluation. [facility] Past Medical History Medical History (Updated 03/18/25 @ 07:12 by Timi Gasca DO) Ulcer Diverticulitis History of gastric ulcer Colon cancer screening Nausea and vomiting in adult Gluten intolerance Belching symptom Erosive gastritis Surgical History Surgical History History of bilateral oophorectomy Family History Family History Father Diabetes mellitus Mother Hypertension Social History Social History Smoking status: Never smoker Tobacco type: cigarettes Alcohol intake: never Substance use: never Substance use type: does not use Living arrangements: with family Spiritual care concerns: No Anes - Eval Final PreProcedure Day of Procedure 03/18/25 07:11 Patient weight: normal Heart: regular rate and rhythm Lungs: clear to auscultation and normal air movement Airway: Mallampati scale class II Neurological: alert and oriented Last oral intake: >/= 8 hours ASA classification: II Emergent: no Anesthetic plan: proceed Anesthesia type and monitoring: general GIVS and standard monitoring Results Review: All pre-operative results and documents have been reviewed as part of the pre- operative evaluation. Informed Consent: The patient's anesthetic plan and its attendant risks and benefits were discussed with the patient/family/POA. Questions were solicited and answers provided to the satisfaction of the patient/family/POA.
[2025-03-18 07:15] VITALS: BP 115/83; PULSE 88; RESP 16; TEMP 36.8; O2SAT 100; BMI 24.8
[2025-03-18 07:34] LABS: BEDSIDEPREGUCG Negative (Negative)
[2025-03-18] MEDS: LACTATED RINGERS 1,000 ML 150 ML IV CONT (07:44)
--- NOTE | 2025-03-18 08:12 | P.HP_ITS ---
History of Present Illness History of Present Illness Consent: Risks, benefits, and alternatives have been discussed and questions answered. Patient agrees to proceed with procedure. Chief complaint: Encounter for screening for malignant neoplasm of Narrative: Elizabeth Crane is a 45 year old female here for screening colonoscopy Review of Systems Review of Systems: All systems reviewed & are unremarkable except as noted in HPI and below PMFSH Past Medical History Medical History (Updated 03/18/25 @ 07:12 by Timi Gasca DO) Ulcer Diverticulitis History of gastric ulcer Colon cancer screening Nausea and vomiting in adult Gluten intolerance Belching symptom Erosive gastritis Surgical History Surgical History History of bilateral oophorectomy Family History Family History Father Diabetes mellitus Mother Hypertension Social History Social History Smoking status: Never smoker Tobacco type: cigarettes Alcohol intake: never Substance use: never Substance use type: does not use Living arrangements: with family Spiritual care concerns: No Meds Home Medications and Allergies Home Medications ?Medication ?Instructions ?Recorded ?Confirmed ?Type cetirizine 10 mg capsule (Zyrtec) 10 mg PO DAILY PRN A llergy Symptoms 09/06/22 03/04/25 History lansoprazole 30 mg capsule,delayed See Rx Instructions .Route 01/15/25 03/18/25 Rx release .COMPLEX #30 caps Allergies Allergy/AdvReac Type Severity Reaction Status Date / Time ciprofloxacin Allergy Intermediate Other Verified 03/18/25 07:23 fluconazole Allergy Unknown Rash Verified 03/18/25 07:23 tramadol Allergy Unknown Nausea and Verified 03/18/25 07:23 Vomiting Vital Signs Vital Signs - 24 hr 03/18/25 07:15 Temperature 98.2 F Pulse Rate 88 Respiratory Rate 16 Blood Pressure 115/83 Pulse Oximetry 100 Oxygen Delivery Room Air Exam Const: General: comfortable and no acute distress HENMT: Face/Nose/Sinus: Normal nares present Eyes: General: appearance normal, both eyes and all related structures Neck: Neck: no JVD Resp: Auscultation: clear to auscultation bilaterally Cardio: Rate: regular rate Rhythm: regular rhythm GI: Inspection: non-distended GI Palp: Yes Soft to palpation Skin: General skin exam: normal color Extrem: General: normal to inspection Psych: Mental Status: mental status grossly normal Assessment and Plan Assessment and plan (1) Colon cancer screening: Code(s): Z12.11 - Encounter for screening for malignant neoplasm of colon Status: Acute Assessment and Plan: colonoscopy
[2025-03-18 08:29] VITALS: BP 105/76; PULSE 78; RESP 26; O2SAT 100
[2025-03-18 08:39] VITALS: BP 103/59; PULSE 75; RESP 18; O2SAT 100
[2025-03-18 08:49] VITALS: BP 101/64; PULSE 68; RESP 15; O2SAT 100
[2025-03-18] MEDS: ONDANSETRON INJ 4 MG/2 ML VIAL IV PUSH (08:53)
[2025-03-18 09:02] VITALS: BP 102/81; PULSE 70; RESP 16; O2SAT 100
== END 2025-03-18 09:10 | disposition home or self-care (01) ==
PROVIDERS: Anesthesiology; Referring Provider Nurse Practitioner; Visit Provider Internal Medicine Gastroenterology
PROC: 0DJD8ZZ Inspection of Lower Intestinal Tract, Via Natural or Artificial Opening Endoscopic (ICD-10-PCS; CPT 45378; principal; 2025-03-18 08:30)
DX: Z12.11 Encounter for screening for malignant neoplasm of colon (principal); K57.30 Diverticulosis of large intestine without perforation or abscess without bleeding
CPT/HCPCS: 45378; J2405; J2704; J7120